=== PATIENT | female | born 1995 | race Caucasian/White ===

== ENCOUNTER 2020-06-24 09:53 | Outpatient (CLI) | payer BC ==
--- NOTE | 2020-06-24 10:21 | RAD ---
LEFT HEEL TWO VIEWS: History: Heel pain. FINDINGS: Prominent spur at the insertion of the plantar fascia on the calcaneus is noted. No Achilles spur. IMPRESSION: Prominent plantar calcaneal spur. POS: [facility]
--- NOTE | 2020-06-24 10:25 | RAD ---
LEFT FOOT THREE VIEWS: History: Heel pain. FINDINGS: There is a fairly prominent spur at the insertion of the plantar fascia on the calcaneus. There are n o signs of fracture or other findings. IMPRESSION: Calcaneal spur. POS: [facility]
== END 2020-06-24 09:54 | disposition home or self-care (01) ==
LOC: BICRAD 09:53
PROVIDERS: ATTEND Family Medicine
DX: M79.672 Pain in left foot (principal); M77.32 Calcaneal spur, left foot